=== PATIENT | male | born 1960 | race African-American/Black ===

== ENCOUNTER 2017-01-29 22:02 | Emergency (ER) | payer MEDICAID ==
[~2017-01-29] VITALS: Ht 170.2 cm; Wt 120.0 kg
[2017-01-30 04:33] VITALS: BP 142/56
== END 2017-01-30 05:21 | disposition home or self-care (01) ==
LOC: ER 22:02
DX: S76.012A Strain of muscle, fascia and tendon of left hip, initial encounter (principal); J45.909 Unspecified asthma, uncomplicated; R20.0 Anesthesia of skin; X58.XXXA Exposure to other specified factors, initial encounter; Y93.89 Activity, other specified; Y92.89 Other specified places as the place of occurrence of the external cause; Y99.8 Other external cause status; Z98.890 Other specified postprocedural states
CPT/HCPCS: 73521; 99284